=== PATIENT | male | born 1940 | race Caucasian/White ===

== ENCOUNTER → 2023-04-16 12:06 | Outpatient (REF) | payer MEDICARE, SELFPAY ==
[2023-04-16 16:12] LABS: Albumin 4.1 g/dl (3.5-5.0); Blood Urea Nitrogen 28 mg/dl (9-20); Calcium 10.1 mg/dl (8.4-10.2); Carbon Dioxide 26 mmol/L (22-30); Chloride 100 mmol/L (98-107); Glucose 139 mg/dl (70-99); HDL Cholesterol 41 mg/dl; LDL Cholesterol, Calculated 92 mg/dl; Phosphorus 4.2 mg/dl (2.5-4.5); Potassium 4.1 mmol/L (3.5-5.1); Sodium 138 mmol/L (135-145); Total Cholesterol 153 mg/dl (50-199); Triglyceride 101 mg/dl (10-149); Very Low Density Lipoprotein 20 mg/dl (0-30); eGFR 46.19
[2023-04-16 16:33] LABS: TSH Reflex To Free T4 1.59 uIU/ml (0.47-4.68)
[2023-04-16 16:51] LABS: Microalbumin, Random Urine 36.6 mg/dl (0.6-1.7)
[2023-04-16 18:04] LABS: Microalbumin/creatinine Ratio 94.2 mg/g
== END ==
LOC: HWLAB 12:06
PROVIDERS: ATTENDING PHYSICIAN Internal Medicine; FAMILY PHYSICIAN Internal Medicine Cardiovascular Disease
DX: E78.00 Pure hypercholesterolemia, unspecified (principal); E11.9 Type 2 diabetes mellitus without complications; R00.2 Palpitations
CPT/HCPCS: 36415; 80061; 80069; 82043; 82570; 83036; 84443

== ENCOUNTER → 2023-08-07 10:36 | Outpatient (REF) | payer MEDICARE, SELFPAY ==
[2023-08-07 15:37] LABS: Blood Urea Nitrogen 16 mg/dl (9-20); Calcium 10.1 mg/dl (8.4-10.2); Carbon Dioxide 24 mmol/L (22-30); Chloride 102 mmol/L (98-107); Glucose 132 mg/dl (70-99); Phosphorus 3.4 mg/dl (2.5-4.5); Potassium 3.7 mmol/L (3.5-5.1); Sodium 135 mmol/L (135-145); eGFR > 60.00
[2023-08-07 15:56] LABS: Microalbumin, Random Urine 2.6 mg/dl (0.6-1.7); Microalbumin/creatinine Ratio 19.1 mg/g
[2023-08-08 09:18] LABS: Glycohemoglobin (HgbA1c) 6.8 % (4.0-5.6)
== END ==
LOC: HWLAB 10:36
PROVIDERS: ATTENDING PHYSICIAN Internal Medicine
DX: I10 Essential (primary) hypertension (principal); E11.9 Type 2 diabetes mellitus without complications
CPT/HCPCS: 36415; 80069; 82043; 82570; 83036

== ENCOUNTER → 2024-09-26 12:07 | Outpatient (REF) | payer MEDICARE, SELFPAY ==
[2024-09-26 15:45] LABS: Urine Character Clear (Clear)
[2024-09-26 15:48] LABS: Hematocrit 43.9 % (39.0-52.0); Hemoglobin 14.3 g/dL (13.0-18.0); Mean Corp Hgb Conc. 32.6 g/dL (33.0-37.0); Mean Corpuscular Volume 83.8 fL (80.0-94.0); Nucleated Red Blood Cells % 0 % (-); Platelet Count 351 10^3/uL (130-400); Red Cell Dist. Width 14.3 % (11.5-14.5)
[2024-09-26 15:54] LABS: ALT (SGPT) 18 U/L (0-50); AST (SGOT) 25 U/L (17-59); Albumin 4.3 g/dl (3.5-5.0); Alkaline Phosphatase 110 U/L (38-126); Blood Urea Nitrogen 24 mg/dl (9-20); Calcium 9.7 mg/dl (8.4-10.2); Carbon Dioxide 25 mmol/L (22-30); Chloride 104 mmol/L (98-107); Glucose 139 mg/dl (70-99); HDL Cholesterol 44 mg/dl; LDL Cholesterol, Calculated 113 mg/dl; Potassium 4.0 mmol/L (3.5-5.1); Sodium 139 mmol/L (135-145); Total Protein 7.1 g/dl (6.3-8.2); Very Low Density Lipoprotein 23 mg/dl (0-30); eGFR 54.51
[2024-09-26 16:17] LABS: Microalb - Urine Creatinine 131.500 mg/dl
[2024-09-26 16:22] LABS: Microalbumin, Random Urine 2.6 mg/dl (0.6-1.7)
[2024-09-27 08:01] LABS: Glycohemoglobin (HgbA1c) 6.6 % (4.0-5.6)
== END ==
LOC: HWLAB 12:07
PROVIDERS: ATTENDING PHYSICIAN Internal Medicine
DX: I10 Essential (primary) hypertension (principal); E11.9 Type 2 diabetes mellitus without complications; E78.5 Hyperlipidemia, unspecified
CPT/HCPCS: 36415; 80053; 80061; 81003; 82043; 82570; 83036; 85025

== ENCOUNTER → 2025-01-02 13:29 | Outpatient (REF) | payer MEDICARE, SELFPAY ==
[2025-01-02 15:40] LABS: Hematocrit 47.2 % (39.0-52.0); Hemoglobin 15.3 g/dL (13.0-18.0); Mean Corp Hgb Conc. 32.4 g/dL (33.0-37.0); Mean Corpuscular Volume 86.6 fL (80.0-94.0); Nucleated Red Blood Cells % 0 % (-); Platelet Count 275 10^3/uL (130-400); Red Cell Dist. Width 14.5 % (11.5-14.5)
[2025-01-02 15:47] LABS: Albumin 4.2 g/dl (3.5-5.0); Blood Urea Nitrogen 20 mg/dl (9-20); Calcium 9.4 mg/dl (8.4-10.2); Carbon Dioxide 27 mmol/L (22-30); Chloride 103 mmol/L (98-107); Glucose 125 mg/dl (70-99); Potassium 3.9 mmol/L (3.5-5.1); Sodium 137 mmol/L (135-145); eGFR > 60.00
[2025-01-03 06:31] LABS: Glycohemoglobin (HgbA1c) 7.0 % (4.0-5.9)
== END ==
LOC: HWLAB 13:29
PROVIDERS: ATTENDING PHYSICIAN Internal Medicine
DX: E11.9 Type 2 diabetes mellitus without complications (principal); D72.829 Elevated white blood cell count, unspecified
CPT/HCPCS: 36415; 80069; 83036; 85025